=== PATIENT | male | born 1980 | race Two or more races ===

== ENCOUNTER 2017-07-01 20:46 | Emergency (ER) | payer OTHER ==
[~2017-07-01] VITALS: Ht 180.3 cm; Wt 83.9 kg
[2017-07-01 21:01] VITALS: BP 123/73
[2017-07-01 21:26] LABS: Basophils # (auto) 0.1 uL; Basophils % (auto) 1.3 % (0.0-2.0); Eosinophils # (auto) 0.1 uL; Eosinophils % (auto) 0.7 % (0.0-7.0); Hematocrit 45.3 % (41.0-53.0); Hemoglobin 15.4 g/dL (13.5-17.5); Lymphocytes # (auto) 1.8 uL; Lymphocytes % (auto) 18.6 % (10.0-50.0); Mean Corpuscular Hemoglobin 31.9 pg (28.0-32.0); Mean Corpuscular Hgb Conc. 34.1 g/dL (32.0-36.0); Mean Corpuscular Volume 93.5 fL (80.0-100.0); Monocytes # (auto) 0.7 uL; Monocytes % (auto) 7.2 % (0.0-12.0); Neutrophils % (auto) 72.2 % (37.0-80.0); Nucleated Red Blood Cells % 0.2 %; Platelet Count (auto) 218 10^3/uL (140-450); Red Blood Cells 4.84 10^6/uL (4.5-5.90); Red Cell Distribution Width 13.7 % (11.8-14.3); White Blood Cell 9.7 10^3/uL (4.4-10.8)
[2017-07-01 21:31] LABS: Urine Bacteria NONE SEEN /hpf (None Seen); Urine Blood Negative /uL (Negative); Urine Mucus FEW (None Seen); Urine Specific Gravity 1.032 (1.001-1.035); Urine WBC 2 /hpf (0 - 3)
[2017-07-01 21:43] LABS: INR 1.02 (0.9-1.15); Partial Thromboplastin Time 26.9 sec (22.64-33.71); Prothrombin Time 11.1 sec (9.37-12.3)
[2017-07-01 21:51] LABS: Alanine Aminotransferase 25 U/L (16-61); Albumin 3.8 g/dL (3.4-5.0); Alkaline Phosphatase 100 U/L (45-117); Anion Gap 8 (5-15); Aspartate Aminotransferase 17 U/L (15-37); BUN/Creatinine Ratio 10.9; Bilirubin, Total 0.3 mg/dL (0.2-1.0); Blood Urea Nitrogen 12 mg/dL (7-18); Calcium 8.6 mg/dL (8.5-10.1); Carbon Dioxide 26 mmol/L (21-32); Chloride 107 mmol/L (98-107); GFR African American 96 mL/min; GFR Non-African American 79 mL/min; Glucose 93 mg/dL (74-106); Potassium 3.8 mmol/L (3.5-5.1); Sodium 141 mmol/L (136-145); Total Protein 7.3 g/dL (6.4-8.2)
[2017-07-01 22:24] LABS: Alcohol, Urine < 3.0 mg/dL (0-5); Amphetamine Screen, Urine NEGATIVE (NEGATIVE); Barbiturate Scree,Urine NEGATIVE (NEGATIVE); Benzodiazephine Screen, Urine NEGATIVE (NEGATIVE); Cannabinoid Screen, Urine POSITIVE (NEGATIVE); Cocaine Screen, Urine NEGATIVE (NEGATIVE); Opiate Scree,Urine NEGATIVE (NEGATIVE); Phencyclidine Screen, Urine NEGATIVE (NEGATIVE)
== END 2017-07-01 23:24 | disposition left against medical advice (07) ==
LOC: ER 20:46
DX: R07.89 Other chest pain (principal)
CPT/HCPCS: 36415; 71046; 80053; 80307; 81001; 84484; 85025; 85610; 85730; 93005